=== PATIENT | male | born 1945 | race Caucasian/White ===

== ENCOUNTER 2017-04-02 09:23 | Day surgery (SDC) | payer MEDICARE, OTHER ==
--- NOTE | ~2017-04-02 | EGD ---
EGD REPORT [facility] [address] [address] NAME: CHIDI LYNCH : [birth year] STATUS : REG [facility] PAT#: [id number] AGE: 72 ADM/REG DATE : 04/02/17 MR#: [id number] REPORT SERV DATE: 04/02/17 DICTATED BY: DATE: REPORT STATUS : Draft TRANSCRIBED BY: [employer] DATE: 04/02/17 [facility] Patient Name: Chidi Lynch Date of : 1945 Attending MD: ABBIE WIGGINS MD Procedure Date No Time: 04/02/2017 Procedure: Colonoscopy Indications: Screening for colorectal malignant neoplasm Referring MD: JAMES LAGUNAS Medicines: Propofol per Anesthesia Complications: No immediate complications. Procedure: After I obtained informed consent, the scope was passed under direct vision. Throughout the procedure, the patient's blood pressure, pulse, and oxygen saturations were monitored continuously. The CF [id number] was introduced through the anus and advanced to the terminal ileum. The colonoscopy was performed without difficulty. The patient tolerated the procedure well. The quality of the bowel preparation was good. Findings: The perianal and digital rectal examinations were normal. The terminal ileum appeared normal. The colon (entire examined portion) appeared normal. Multiple small and large-mouthed diverticula were found in the recto-sigmoid colon, in the sigmoid colon, in the descending colon, in the transverse colon and in the ascending colon. Non-bleeding internal hemorrhoids were found during retroflexion and were mild, small and Grade I (internal hemorrhoids that do not prolapse). Impression: - The examined portion of the ileum was normal. - The entire examined colon is normal. - Diverticulosis in the recto-sigmoid colon, in the sigmoid colon, in the descending colon, in the transverse colon and in the ascending colon. - Non-bleeding internal hemorrhoids. Recommendation: - Patient has a contact number available for emergencies. The signs and symptoms of potential delayed complications were discussed with the patient. Return to normal activities tomorrow. Written discharge instructions were provided to the patient. - Return to previous diet. - Continue present medications. - Resume Eliquis at prior dose tomorrow. Refer to EGD REPORT [address] [address] NAME: CHIDI LYNCH : [birth year] STATUS : REG [facility]#: [id number] AGE: 72 ADM/REG DATE : 04/02/17 MR#: [id number] REPORT SERV DATE: 04/02/17 DICTATED BY: DATE: REPORT STATUS : Draft TRANSCRIBED BY: [employer] DATE: 04/02/17 managing physician for further adjustment of therapy. - Repeat colonoscopy in 10 years for screening purposes. - Return to my office as previously scheduled. - Discharge patient to home. Procedure Code(s): --- Professional --- G0121, Colorectal cancer screening; colonoscopy on individual not meeting criteria for high risk Diagnosis Code(s): --- Professional --- K64.0, First degree hemorrhoids K57.30, Diverticulosis of large intestine without perforation or abscess without bleeding Z12.11, Encounter for screening for malignant neoplasm of colon CPT copyright 2013 [employer]. All rights reserved. The codes documented in this report are preliminary and upon investigator review may be revised to meet current compliance requirements. Abbie Wiggins MD ABBIE WIGGINS MD 04/02/2017 12:45 PM This report has been signed electronically. Number of Addenda: 0 Note Initiated On: 04/02/2017 8:18 AM Scope Withdrawal Time 0 hours 10 minutes 48 seconds [id number] [id number]
[~2017-04-02 09:23] MED LIST: BETAPACE80 PO; ELIQUIS 5 MG TAB5 MG PO; FLECAINIDE100 MG PO; GLUCPH PO; HYDROCHLOROT25 MG PO; JANUVIA25 MG PO; LOP25 PO; MSCONT15 PO; NORCO1 TAB PO; NORV10 PO; ULTRAM50 PO; Z300 PO
== END 2017-04-02 23:59 | disposition home or self-care (01) ==
LOC: DMU 09:23
PROVIDERS: Internal Medicine Gastroenterology
PROC: 0DJD8ZZ Inspection of Lower Intestinal Tract, Via Natural or Artificial Opening Endoscopic (ICD-10-PCS; principal; 2017-04-02 10:00)
DX: Z12.11 Encounter for screening for malignant neoplasm of colon (principal); K57.30 Diverticulosis of large intestine without perforation or abscess without bleeding; K64.0 First degree hemorrhoids; I48.91 Unspecified atrial fibrillation; E11.9 Type 2 diabetes mellitus without complications; I10 Essential (primary) hypertension; G47.33 Obstructive sleep apnea (adult) (pediatric); N18.9 Chronic kidney disease, unspecified; R13.10 Dysphagia, unspecified; G89.29 Other chronic pain; R00.1 Bradycardia, unspecified; Z95.0 Presence of cardiac pacemaker
CPT/HCPCS: 82962